=== PATIENT | female | born 2000 | race Caucasian/White ===

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

== ENCOUNTER 2023-01-29 15:37 | Emergency (ER) | payer MEDICAID ==
[~2023-01-29] VITALS: Ht 160 cm; Wt 61.0 kg
[2023-01-29 15:44] VITALS: BP 107/70; PULSE 84; RESP 18; TEMP 98.5; O2SAT 97
[2023-01-29] MEDS ORDERED: ACETAMINOPHEN 325MG TABLET PO ONE (18:00)
[2023-01-29] MEDS ORDERED: IBUP-2029 MT (18:59)
== END 2023-01-29 21:24 | disposition home or self-care (01) ==
LOC: ER 15:44
DX: N63.0 Unspecified lump in unspecified breast (principal); F41.9 Anxiety disorder, unspecified; F32.9 Major depressive disorder, single episode, unspecified
CPT/HCPCS: 71045; 76641; 93005; 99284